=== PATIENT | female | born 2000 | race Caucasian/White ===

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

== ENCOUNTER 2019-04-28 12:27 | Emergency (ER) | payer OTHER ==
[2019-04-28 13:42] LABS: #Eosinphils 0.2 thou/uL (0.0-0.7); #Lymphocytes 1.7 thou/uL (1.20-3.40); #Monocytes 0.4 thou/uL (0.11-0.59); #Neutrophils 6.8 thou/uL (1.40-6.50); %Basophils 0.5 % (0.0-1.0); %Eosinophils 1.8 % (0.0-10.0); %Lymphocytes 18.5 % (28.0-48.0); %Monocytes 4.4 % (0.0-4.0); %Neutrophils 74.8 % (31.0-61.0); Hemoglobin 15.1 g/dL (12.0-16.0); Mean Corpuscular HGB CONC 33.1 g/dL (32.0-36.0); Mean Corpuscular Hemoglobin 28.4 pg (25.0-35.0); Mean Corpuscular Volume 85.9 fL (78.0-98.0); Mean Platelet Volume 9.1 fL (7.4-10.4); Platelet Count 266 thou/uL (130-400); RBC Distribution Width 12.5 % (11.5-14.5); White Blood Cell (WBC) Count 9.1 thou/uL (4.8-10.8)
[2019-04-28 14:00] LABS: Bilirubin Negative (Negative); Blood, Urine Negative (Negative); Glucose, Urine (Dipstick) Negative (Negative); Leukocyte Moderate (Negative); Nitrite Negative (Negative); Protein, Urine (Dipstick) Negative (Neg-Trace); Urobilinogen 0.2 mg/dL (Less than 2)
[2019-04-28 14:01] LABS: Clarity Hazy (Clear)
[2019-04-28 14:03] LABS: Pregnancy Test - Urine (BHCG) Negative (Negative); Pregu Control Background? CLEAR/WHITE (CLR/WHITE); Pregu Control Bar Appear? YES (CONTROL BAR)
[2019-04-28 14:07] LABS: Bacteria/HPF None Seen HPF (None Seen); RBC/HPF 0-3 HPF (0-3)
[2019-04-28 14:08] LABS: Mucous/LPF 1+ LPF (<2+)
--- NOTE | 2019-04-28 14:53 | RAD ---
XR Hip Lt 2-3 View: 04/28/2019 2:26 PM CLINICAL INDICATION: Pain COMPARISON: None. FINDINGS: Fracture:No fracture. Arthropathy:None of significance. Incidental findings:None of significance. IMPRESSION: 1. No acute osseous abnormality.
[2019-04-28 15:17] LABS: ALT (SGPT) 28 U/L (8-55); AST (SGOT) 20 U/L (5-34); Albumin 4.2 g/dL (3.5-5.0); Alkaline Phosphatase 107 U/L (40-100); Anion Gap 12 mmol/L (10-20); BUN (Urea Nitrogen) 14 mg/dL (7.0-18.7); Bilirubin, Total 0.3 mg/dL (0.2-1.2); Calc. Creatinine Clearance 0 mL/min (70-130); Calcium 9.3 mg/dL (7.8-10.44); Carbon Dioxide 27 mmol/L (22-29); Chloride 106 mmol/L (98-107); Estimated GFR-MDRD Greater than 90; Globulin 2.9 g/dL (2.4-3.5); Glucose 99 mg/dL (70-105); Potassium 4.7 mmol/L (3.5-5.1); Protein, Total 7.1 g/dL (6.0-8.3); Sodium 140 mmol/L (136-145)
== END 2019-04-28 15:34 | disposition home or self-care (01) ==
LOC: ERS 12:27
DX: M25.552 Pain in left hip (principal); N39.0 Urinary tract infection, site not specified; F17.210 Nicotine dependence, cigarettes, uncomplicated; J45.909 Unspecified asthma, uncomplicated; I45.6 Pre-excitation syndrome
CPT/HCPCS: 36415; 80053; 81003; 81015; 81025; 85025

== ENCOUNTER 2020-07-24 21:15 | Emergency (ER) | payer OTHER ==
[2020-07-24] MEDS ORDERED: Acetaminophen 500 MG TAB ONE (21:37)
[2020-07-24 22:07] LABS: #Eosinphils 0.1 thou/uL (0.0-0.7); #Lymphocytes 1.4 thou/uL (1.20-3.40); #Monocytes 0.6 thou/uL (0.11-0.59); #Neutrophils 7.3 thou/uL (1.40-6.50); %Basophils 0.1 % (0.0-1.0); %Eosinophils 0.7 % (0.0-10.0); %Monocytes 6.7 % (0.0-10.0); %Neutrophils 77.5 % (42.0-75.0); Hemoglobin 13.3 g/dL (12.0-16.0); Mean Corpuscular HGB CONC 32.9 g/dL (32.0-36.0); Mean Corpuscular Hemoglobin 27.4 pg (27.0-31.0); Mean Corpuscular Volume 83.3 fL (78.0-98.0); Mean Platelet Volume 7.9 fL (7.4-10.4); Platelet Count 305 thou/uL (130-400); RBC Distribution Width 12.2 % (11.5-14.5); Red Blood Cell (RBC) Count 4.86 mill/uL (4.20-5.40); White Blood Cell (WBC) Count 9.5 thou/uL (4.8-10.8)
[2020-07-24 22:13] LABS: Bilirubin Negative (Negative); Blood, Urine Negative (Negative); Clarity Clear (Clear); Glucose, Urine (Dipstick) Normal (Negative); Ketone, Urine Negative (Negative); Leukocyte Negative Leu/uL (Negative); Nitrite Negative (Negative); Protein, Urine (Dipstick) Negative (Neg-Trace); Specific Gravity, Urine 1.019 (1.002-1.036); Urobilinogen Normal mg/dL (Less than 2); pH, Urine 5.5 (5.0-9.0)
[2020-07-24] MEDS ORDERED: Dexamethasone 10 MG/ML VIAL ONE (22:15)
[2020-07-24] MEDS ORDERED: Ondansetron ODT 4 MG TAB ONE (22:15)
[2020-07-24 22:17] LABS: Pregnancy Test - Urine (BHCG) Negative (Negative); Pregu Control Background? CLEAR/WHITE (CLR/WHITE); Pregu Control Bar Appear? YES (CONTROL BAR); Specific Gravity 1.019 (1.002-1.036)
[2020-07-24 22:27] LABS: ALT (SGPT) 28 U/L (8-55); AST (SGOT) 21 U/L (5-34); Albumin 4.1 g/dL (3.5-5.0); Alkaline Phosphatase 132 U/L (40-110); Anion Gap 12 mmol/L (10-20); BUN (Urea Nitrogen) 5 mg/dL (7.0-18.7); Bilirubin, Total 0.2 mg/dL (0.2-1.2); Calc. Creatinine Clearance 0 mL/min (70-130); Carbon Dioxide 26 mmol/L (22-29); Chloride 104 mmol/L (98-107); Globulin 3.8 g/dL (2.4-3.5); Glucose 92 mg/dL (70-105); Protein, Total 7.9 g/dL (6.0-8.3); Sodium 138 mmol/L (136-145)
[2020-07-24] MEDS ORDERED: Ketorolac Tromethamine 30 MG/ML VIAL ONE (22:27)
[2020-07-25 05:41] LABS: SARS-CoV-2 PCR by NAA Indeterminate (NotDetected)
== END 2020-07-24 23:43 | disposition home or self-care (01) ==
LOC: ERS 21:15
DX: B34.9 Viral infection, unspecified (principal); Z20.822 Contact with and (suspected) exposure to COVID-19; R00.0 Tachycardia, unspecified; F17.200 Nicotine dependence, unspecified, uncomplicated
CPT/HCPCS: 36415; 71045; 80053; 81003; 81025; 85025; 87635; 93005; J1100; J1885; Q0162; U0003; U0005

== ENCOUNTER 2020-07-29 07:20 | Inpatient (IN) | payer OTHER ==
[2020-07-29] MEDS ORDERED: Acetaminophen 500 MG TAB ONE (07:31)
[2020-07-29] MEDS ORDERED: Ketorolac Tromethamine 30 MG/ML VIAL ONE (08:09)
[2020-07-29 08:11] LABS: Hemoglobin 13.4 g/dL (12.0-16.0); Mean Corpuscular HGB CONC 33.4 g/dL (32.0-36.0); Mean Corpuscular Hemoglobin 27.9 pg (27.0-31.0); Mean Corpuscular Volume 83.4 fL (78.0-98.0); Mean Platelet Volume 8.1 fL (7.4-10.4); Platelet Count 303 thou/uL (130-400); RBC Distribution Width 12.2 % (11.5-14.5); Red Blood Cell (RBC) Count 4.82 mill/uL (4.20-5.40); White Blood Cell (WBC) Count 15.9 thou/uL (4.8-10.8)
[2020-07-29 08:15] LABS: PTT 37.9 sec (22.9-36.1); Prothrombin Time 13.6 sec (12.0-14.7)
[2020-07-29 08:22] LABS: ALT (SGPT) 21 U/L (8-55); AST (SGOT) 18 U/L (5-34); Albumin 3.9 g/dL (3.5-5.0); Alkaline Phosphatase 129 U/L (40-110); Anion Gap 14 mmol/L (10-20); BUN (Urea Nitrogen) 11 mg/dL (7.0-18.7); Bilirubin, Total 0.4 mg/dL (0.2-1.2); Calc. Creatinine Clearance 0 mL/min (70-130); Calcium 8.8 mg/dL (7.8-10.44); Carbon Dioxide 23 mmol/L (22-29); Chloride 101 mmol/L (98-107); Glucose 105 mg/dL (70-105); Potassium 4.2 mmol/L (3.5-5.1); Protein, Total 7.9 g/dL (6.0-8.3); Sodium 134 mmol/L (136-145)
[2020-07-29 08:39] LABS: Band 26 % (5-11); Lymphocytes 6 % (21-51); MDiff Complete? YES; Monocytes 3 % (0-10); Neutrophil 65 % (42-75); Platelet Morphology Comment Appears Adequate; RBC Morphology Normal
--- NOTE | 2020-07-29 08:52 | RAD ---
Portable frontal chest radiograph: 07/29/2020 COMPARISON: 07/24/2020 HISTORY: Fever with headache and vomiting FINDINGS: Lungs are clear. Heart and mediastinal contours appear within normal limits. IMPRESSION: No acute findings.
[2020-07-29 09:59] LABS: Bilirubin Negative (Negative); Blood, Urine Negative (Negative); Clarity Clear (Clear); Glucose, Urine (Dipstick) Normal (Negative); Ketone, Urine Negative (Negative); Leukocyte 500 Leu/uL (Negative); Nitrite Negative (Negative); Protein, Urine (Dipstick) 30 mg/dL (Neg-Trace); RBC/HPF 0-3 HPF (0-3); Specific Gravity, Urine 1.023 (1.002-1.036); Urobilinogen Normal mg/dL (Less than 2)
[2020-07-29 10:01] LABS: Bacteria/HPF 1+ HPF (None Seen)
[2020-07-29 10:02] LABS: SARS-CoV-2 NAA Rapid Test Not Detected (NotDetected)
[2020-07-29 10:03] LABS: Pregnancy Test - Urine (BHCG) Negative (Negative); Pregu Control Background? CLEAR/WHITE (CLR/WHITE); Pregu Control Bar Appear? YES (CONTROL BAR); Specific Gravity 1.023 (1.002-1.036)
[2020-07-29] MEDS ORDERED: cefTRIAXone\\ROCEPHIN 1 GM VIAL ONE (10:16)
[2020-07-29] MEDS ORDERED: Ondansetron PF 4 MG/2 ML Vial IVP PRN (10:30)
[2020-07-29] MEDS ORDERED: Ondansetron ODT 4 MG TAB SL PRN (10:30)
--- NOTE | 2020-07-29 12:02 | PDOC.HHP ---
Hospitalist HPI fever History of Present Illness: This is a 19 year old female with PMH migraines, asthma and WPW arrythmia presents to ED with chief complaint of fever. The patient states her symptoms started last Sunday when she had a fever of 101. She had some chills, back pain, and headache, and came to the ER. She had a negative COVID test and was prescribed some liquid steroids which resolved her symptoms and was discharged. Last night, her headaches , chills and flank pain reoccurred and she spiked a fever back up to 103.9, so she presented back to the ER. She states her flank pain was on the right side, sharp, 5/10 and described it as feeling like someone was squeezing her. The pain lasted approximately two minutes, then resolved on its own, then came back in an hour. She had no relief with pain medicines. She denied dysuria, frequency, or urgency. She also had intractable nausea and vomiting that was brown in color. There was no blood. She reported constipation , but no diarrhea. She also reports sore throat with swelling of her tonsils that started yesterday. She has runny nose, sore throat, and mildly productive cough of clear phlegm. She denies muscle aches. She had an intractable headache which has now resolved. She is sexually active with three partners and had gonorrhea infection in the past. She reports using protection. Last LMP was June 29. She denies sick contacts. ED Course: ED Course: When patient came to the ER, she had temp of 101.3, heart rate 135, RR 22, BP 116/68. WBC was 15.9, sodium 134, ALP 129. UA showed 11-20 WBC, urine leukocyte esterase 500. COVID negative and influenza negative. CXR was normal. She was given ceftriaxone, 1L fluid, 30 of ketorolaac, and 1 gram tylenol. Allergies/Adverse Reactions: Allergy/AdvReac Type Severity Reaction Status Date / Time No Known Allergies Allergy Unverified 07/29/20 12:57 Past History: PMHx: * Migraines, diagnosed at 13, had CTs done but not seeing a specialist now * Asthma - very mild * [id number] Arrhythmia PSHx: * Appendectomy at age 12 FHx: Patient does not know her biological father. States she has DM, Thyroid, Cardiovascular (Aortic aneurysm, Brain aneurysm in MGM), and Cancer on maternal side of family. She has no kids. 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 While she describes another activity she does with regard to her grandmother and involves a lot of driving almost like a second job, she reports no undue stress. Current smoker ( vapes) every day, alcohol q2 weeks, marijuana weekly Hospitalist HPI ROS Constitutional: reports: fever, chills, sweats, weakness, malaise Eyes: denies: pain, vision change, conjunctivae inflammation, eyelid inflammation, redness ENT: reports: nose discharge, nose congestion, throat pain, throat swelling (Ad enoids swollen and tender to palpation). denies: ear pain, ear discharge, nose pain, mouth pain, mouth swelling Respiratory: reports: cough, shortness of breath ("All the time" a couple days ago (not related to exertion) but not experiencing now.), pleuritic pain, sputum. denies: hemoptysis, SOB with excertion, wheezing Cardiovascular: reports: chest pain (Always has chest pain when sick due to WPW arrhythmia.), light headedness (dizziness while ambulating). denies: palpitations, orthopnea, paroxysmal noc. dyspnea (Although it wakes her), edema Gastrointestinal: reports: nausea, vomiting, abdominal pain (RLQ, RMQ tender to palpation no rebound or rovsings), constipation. denies: diarrhea, melena, hematochezia Genitourinary: denies: dysuria, incontinence, hematuria Musculoskeletal: reports: neck pain, back pain. denies: shoulder pain, arm pain, hand pain, leg pain, foot pain Skin: denies: rash, lesions, rosa, bruising Neurological: reports: weakness (Pt does not think weakness neurological in nature, but because she is sick). denies: numbness, incoordination, change in speech, confusion, seizures Hospitalist Exam General Appearance: NAD, awake alert. negative: ill appearing Eye: PERRL, anicteric sclera. negative: scleral icterus ENT: normocephalic atraumatic, no oropharyngeal lesions (Looked in mouth with l ight, no tongueblade), moist mucosa Neck: supple, symmetric, no JVD, no lymphadenopathy (adenoids tender to palpation), no carotid bruit Heart: RRR, no murmur, no gallops, no rubs, normal peripheral pulses (pedal & radial) Respiratory: CTAB, no wheezes, no rales, no ronchi Gastrointestinal: soft, non-distended, normal bowel sounds, no palpable masses (Maybe HSM? Was able to palpate liver and spleen below costal margin), no splenomegaly, no guarding, no rigidity Gastrointestinal - other findings: right CVA tenderness Extremities: no cyanosis, no edema Skin: normal turgor Neurological: cranial nerve grossly intact, no focal deficits Musculoskeletal: generalized weakness Psychiatric: normal affect, normal behavior, A&O x 3, oriented to person, oriented to place, oriented to time Hospitalist Results Result Diagrams: 07/29/20 07:46 07/29/20 07:46 Lab results: Laboratory Last Values WBC 15.9 thou/uL (4.8-10.8) H 07/29/20 07:46 RBC 4.82 mill/uL (4.20-5.40) 07/29/20 07:46 Hgb 13.4 g/dL (12.0-16.0) 07/29/20 07:46 Hct 40.2 % (36.0-47.0) 07/29/20 07:46 MCV 83.4 fL (78.0-98.0) 07/29/20 07:46 MCH 27.9 pg (27.0-31.0) 07/29/20 07:46 MCHC 33.4 g/dL (32.0-36.0) 07/29/20 07:46 RDW 12.2 % (11.5-14.5) 07/29/20 07:46 Plt Count 303 thou/uL (130-400) 07/29/20 07:46 MPV 8.1 fL (7.4-10.4) 07/29/20 07:46 Neutrophils % (Manual) 65 % (42-75) 07/29/20 07:46 Band Neuts % (Manual) 26 % (5-11) H 07/29/20 07:46 Lymphocytes % (Manual) 6 % (21-51) L 07/29/20 07:46 Monocytes % (Manual) 3 % (0-10) 07/29/20 07:46 Lymphocytes # Not Reportable 07/29/20 07:46 Plt Morphology Comment Appears Adequate 07/29/20 07:46 RBC Morph Comment Normal 07/29/20 07:46 PT 13.6 sec (12.0-14.7) 07/29/20 07:46 INR 1.0 07/29/20 07:46 APTT 37.9 sec (22.9-36.1) H 07/29/20 07:46 Sodium 134 mmol/L (136-145) L 07/29/20 07:46 Potassium 4.2 mmol/L (3.5-5.1) 07/29/20 07:46 Chloride 101 mmol/L (98-107) 07/29/20 07:46 Carbon Dioxide 23 mmol/L (22-29) 07/29/20 07:46 Anion Gap 14 mmol/L (10-20) 07/29/20 07:46 BUN 11 mg/dL (7.0-18.7) 07/29/20 07:46 Creatinine 0.89 mg/dL (0.6-1.1) 07/29/20 07:46 Estimated GFR (MDRD) 80 07/29/20 07:46 Glucose 105 mg/dL (70-105) 07/29/20 07:46 Lactic Acid 0.9 mmol/L (0.5-2.2) 07/29/20 07:58 Calcium 8.8 mg/dL (7.8-10.44) 07/29/20 07:46 Total Bilirubin 0.4 mg/dL (0.2-1.2) 07/29/20 07:46 AST 18 U/L (5-34) 07/29/20 07:46 ALT 21 U/L (8-55) 07/29/20 07:46 Alkaline Phosphatase 129 U/L (40-110) H 07/29/20 07:46 Serum Total Protein 7.9 g/dL (6.0-8.3) 07/29/20 07:46 Albumin 3.9 g/dL (3.5-5.0) 07/29/20 07:46 Globulin 4.0 g/dL (2.4-3.5) H 07/29/20 07:46 Albumin/Globulin Ratio 1.0 g/dL (1.2-2.2) L 07/29/20 07:46 Urine Color Yellow (Yellow) 02/04/21 08:57 Urine Clarity Clear (Clear) 07/29/20 08:57 Urine pH 8.0 (5.0-9.0) 07/29/20 08:57 Ur Specific [place] 1.023 (1.002-1.036) 07/29/20 08:57 Ur Specific [place] 1.023 (1.002-1.036) 07/29/20 08:57 Urine Protein 30 mg/dL (Neg-Trace) A 07/29/20 08:57 Urine Glucose (UA) Normal mg/dL (Negative) 07/29/20 08:57 Urine Ketones Negative mg/dL (Negative) 07/29/20 08:57 Urine Blood Negative (Negative) 07/29/20 08:57 Urine Nitrite Negative (Negative) 07/29/20 08:57 Urine Bilirubin Negative (Negative) 07/29/20 08:57 Urine Urobilinogen Normal mg/dL (Less than 2) 07/29/20 08:57 Ur Leukocyte Esterase 500 [place]/uL (Negative) A 07/29/20 08:57 Urine RBC 0-3 HPF (0-3) 07/29/20 08:57 Urine WBC 11-20 HPF (0-3) A 07/29/20 08:57 Ur Squamous Epith Cells 11-20 HPF (0-3) A 07/29/20 08:57 Urine Bacteria 1+ HPF (None Seen) A 07/29/20 08:57 Urine Test Negative (Negative) 07/29/20 08:57 Influenza A RNA INAAT Not Detected (NotDetected) 07/29/20 09:11 Influenza B RNA INAAT Not Detected (NotDetected) 07/29/20 09:11 SARS-CoV-2 Rap RNA(RT-PCR) Not Detected (NotDetected) 07/29/20 09:11 Hospitalist H&P A/P Plan: This is a 19 year old female who presented to the ER with fever, tachycardia, ad mitted for pyelonephritis Sepsis secondary to pyelonephritis - had fever, tachycardia, positive UA and CVA tenderness. F/u blood culture, urine culture - will continue ceftriaxone - toradol prn for pain, tramadol prn for pain - will check HIV test, chlamydia/gonorrhea, hepatitis B given multiple sexual partners Hyponatremia - sodium 129, will start IV fluids Tory Hernandez -stable, will monitor Headaches - resolved Dispo: likely can d/c tomorrow
[2020-07-29] MEDS ORDERED: cefTRIAXone\\ROCEPHIN 1 GM in Sodium Chloride 0.9% 100 ML IVPB SCH (13:00)
[2020-07-29 13:15] VITALS: BMI 39.9
[2020-07-29] MEDS ORDERED: Morphine 2 MG/ML VIAL SLOW IVP PRN (14:55)
[2020-07-29] MEDS: Acetaminophen 325 MG TAB PO PRN ×2 (15:06→21:01)
[2020-07-29 17:54] LABS: HBSAB Concentration Less than 8.00 mIU/mL; HBSAg Index 0.27 S/CO (0-0.99); Hep B Surf AB Non-Reactive (NonReactive); Hep B Surf Ag Non-Reactive S/CO (NonReactive)
[2020-07-29] MEDS: Ketorolac Tromethamine 30 MG/ML VIAL IVP PRN (17:58)
[2020-07-29 18:23] LABS: HIV (1/2) Antibody/Antigen Non-Reactive (NonReactive); HIV 1/2 INDEX 0.12 S/CO (<1.00)
[2020-07-30] MEDS: Ketorolac Tromethamine 30 MG/ML VIAL IVP PRN (00:13)
[2020-07-30] MEDS: Acetaminophen 325 MG TAB PO PRN ×5 (01:01→23:18)
[2020-07-30 08:47] LABS: Hemoglobin 12.4 g/dL (12.0-16.0); Mean Corpuscular HGB CONC 33.7 g/dL (32.0-36.0); Mean Corpuscular Hemoglobin 28.1 pg (27.0-31.0); Mean Corpuscular Volume 83.5 fL (78.0-98.0); Platelet Count 268 thou/uL (130-400); RBC Distribution Width 12.2 % (11.5-14.5); Red Blood Cell (RBC) Count 4.42 mill/uL (4.20-5.40); White Blood Cell (WBC) Count 19.1 thou/uL (4.8-10.8)
--- NOTE | 2020-07-30 09:22 | PDOC.HOSPP ---
- Subjective Encounter Date: 07/30/20 Encounter Time: 09:20 Subjective: The patient has spiked fevers all day yesterday and she reports persistent chills. She still has abdominal pain on the right side, it improves some with the pain killers. She had no vomiting SHe denies diarrhea. Her throat is still sore and she has having odynophagia - Objective Vital Signs & Weight: Vital Signs (12 hours) Temp Pulse Resp BP Pulse Ox 07/30/20 06:43 102.5 F H 102 H 16 109/59 L 96 07/30/20 05:51 100.7 F H 07/30/20 05:49 100.7 F H 07/30/20 05:10 100.8 F H 07/30/20 03:56 98.5 F 85 16 110/59 L 97 07/30/20 02:00 99.9 F H 07/30/20 01:00 102.0 F H 07/30/20 00:10 103.0 F H 07/29/20 23:31 100.8 F H 107 H 16 118/56 L 96 07/29/20 23:25 100.8 F H 07/29/20 21:47 100.4 F H Weight Weight 218 lb I&O: 07/29/20 07/30/20 07/31/20 06:59 06:59 06:59 Intake Total 650 371 Balance 650 371 Result Diagrams: 07/30/20 08:19 07/29/20 07:46 Hospitalist ROS - Review of Systems Constitutional: denies: fever, chills - Medication Medications: Active Medications Generic Name Dose Route Start Last Admin Trade Name Joshq PRN Reason Stop Dose Admin Acetaminophen 650 mg 07/29/20 10:30 07/30/20 05:49 Acetaminophen 325 Mg Tab PO 650 mg Q4H PRN Administration Headache/Fever or Pain Ketorolac Tromethamine 15 mg 07/29/20 14:54 07/30/20 00:13 Ketorolac Tromethamine 30 Mg/Ml Vial IVP 08/03/20 14:55 15 mg Q6H PRN Administration Pain Morphine Sulfate 2 mg 07/29/20 14:55 07/29/20 15:09 Morphine 2 Mg/Ml Vial SLOW IVP 2 mg Q4H PRN Administration Severe Pain (7-10) Hospitalist Exam Vitals: Vital Signs (12 hours) Temp Pulse Resp BP Pulse Ox 07/30/20 06:43 102.5 F H 102 H 16 109/59 L 96 07/30/20 05:51 100.7 F H 07/30/20 05:49 100.7 F H 07/30/20 05:10 100.8 F H 07/30/20 03:56 98.5 F 85 16 110/59 L 97 07/30/20 02:00 99.9 F H 07/30/20 01:00 102.0 F H 07/30/20 00:10 103.0 F H 07/29/20 23:31 100.8 F H 107 H 16 118/56 L 96 07/29/20 23:25 100.8 F H 07/29/20 21:47 100.4 F H Weight Weight 218 lb General Appearance: NAD, awake alert Eye: PERRL, anicteric sclera ENT: normocephalic atraumatic, no oropharyngeal lesions Neck: no JVD Heart: RRR, no murmur, no gallops, no rubs Respiratory: CTAB, no wheezes, no rales, no ronchi Gastrointestinal: soft, non-tender, non-distended, normal bowel sounds Gastrointestinal - other findings: right > left CVA tenderness Extremities: no cyanosis, no clubbing, no edema Skin: normal turgor, no lesions, no rashes Neurological: cranial nerve grossly intact, normal sensation to touch, no weakness Musculoskeletal: normal tone, normal strength, no muscle wasting Psychiatric: normal affect, normal behavior, A&O x 3 Hosp A/P - Plan This is a 19 year old female who presented to the ER with fever, tachycardia, admitted for pyelonephritis Sepsis secondary to pyelonephritis - still febrile on ceftriaxone and WBC has increased to 19. Will switch to IV zosyn pending culture results . F/u urine and blood cultures - consider CT abdomen if persistent fevers in 24 hours - continue prn pain meds. - patient has 3 sexual partners. HIV and hep B test were negative. Chlamydia/gonorrhea are pending. Will add RPR well for screening Hyponatremia -sodium improved to 134. Elevated ALP - ALP 129, trending down. Will repeat CMP today Tory Parkinsons White -stable, will monitor Headaches - resolved
[2020-07-30] MEDS ORDERED: cefTRIAXone\\ROCEPHIN 1 GM in Sodium Chloride 0.9% 100 ML IVPB SCH (10:00)
[2020-07-30] MEDS: Piperacillin/Tazobactam 3.375 GM in Sodium Chloride 0.9% 100 ML IVPB SCH ×3 (10:05→21:50)
[2020-07-30 10:06] LABS: Syphilis Antibody Nonreactive (Nonreactive); Syphilis Antibody Index 0.13 S/CO (<1.00 Non-Reactive)
[2020-07-30] MEDS: traMADol HCl 50 MG TAB PO PRN ×2 (10:13→19:46)
[2020-07-30] MEDS ORDERED: Ondansetron PF 4 MG/2 ML Vial IVP PRN (10:19)
[2020-07-30] MEDS: Sodium Chloride 0.9% 1,000 ML IV SCH ×2 (11:41→21:49)
[2020-07-31] MEDS: traMADol HCl 50 MG TAB PO PRN (03:54)
[2020-07-31] MEDS: Piperacillin/Tazobactam 3.375 GM in Sodium Chloride 0.9% 100 ML IVPB SCH ×4 (03:55→22:15)
[2020-07-31 05:14] LABS: Hemoglobin 10.8 g/dL (12.0-16.0); Mean Corpuscular HGB CONC 32.6 g/dL (32.0-36.0); Mean Platelet Volume 8.3 fL (7.4-10.4); Platelet Count 258 thou/uL (130-400); RBC Distribution Width 12.2 % (11.5-14.5); Red Blood Cell (RBC) Count 3.99 mill/uL (4.20-5.40); White Blood Cell (WBC) Count 12.2 thou/uL (4.8-10.8)
[2020-07-31 05:37] LABS: ALT (SGPT) 17 U/L (8-55); AST (SGOT) 17 U/L (5-34); Alkaline Phosphatase 93 U/L (40-110); Anion Gap 13 mmol/L (10-20); BUN (Urea Nitrogen) 6 mg/dL (7.0-18.7); Bilirubin, Total 0.3 mg/dL (0.2-1.2); Calc. Creatinine Clearance 190 mL/min (70-130); Calcium 7.7 mg/dL (7.8-10.44); Carbon Dioxide 21 mmol/L (22-29); Chloride 106 mmol/L (98-107); Globulin 3.2 g/dL (2.4-3.5); Glucose 88 mg/dL (70-105); Potassium 3.8 mmol/L (3.5-5.1); Protein, Total 6.2 g/dL (6.0-8.3); Sodium 136 mmol/L (136-145)
[2020-07-31] MEDS ORDERED: Cepastat Lozenges 1 LOZ PO PRN (05:59)
[2020-07-31] MEDS: Sodium Chloride 0.9% 1,000 ML IV SCH ×2 (09:32→22:15)
[2020-07-31] MEDS ORDERED: Dexamethasone 4 mg/ml Vial SLOW IVP SCH (13:00)
--- NOTE | 2020-07-31 13:31 | PDOC.HOSPP ---
- Subjective Encounter Date: 07/31/20 Encounter Time: 11:20 Subjective: Patient seen this morning and test results are discussed. She feels that her tonsils are more swollen than yesterday - will start her on a empiric Decadron and request the ENT consult. Unasyn antibiotic would be appropriate but she is covered with the Zosyn for pyelonephritis we will continue the same. Exam showed swollen tonsils but no exudate appreciated. - Objective Vital Signs & Weight: Vital Signs (12 hours) Temp Pulse Resp BP Pulse Ox 07/31/20 11:21 100.0 F H 07/31/20 07:37 100.7 F H 94 18 120/58 L 95 07/31/20 04:00 99.8 F H Weight Weight 218 lb I&O: 07/30/20 07/31/20 08/01/20 06:59 06:59 06:59 Intake Total 650 2746 1690 Balance 650 2746 1690 Result Diagrams: 07/31/20 04:31 07/31/20 04:31 Hospitalist ROS - Medication Medications: Active Medications Generic Name Dose Route Start Last Admin Trade Name Freq PRN Reason Stop Dose Admin Acetaminophen 650 mg 07/30/20 12:39 07/30/20 23:18 Acetaminophen 325 Mg Tab PO 650 mg Q4H PRN Administration Headache/Fever or Pain Piperacillin Sod/Tazobactam 100 mls @ 200 mls/hr 07/30/20 10:00 07/31/20 09:33 Sod 3.375 gm/ Sodium Chloride IVPB 100 mls 0400,1000,1600,2200 HANH Administration Sodium Chloride 1,000 mls @ 100 mls/hr 07/30/20 10:45 07/31/20 09:32 Normal Saline 0.9% IV 1,000 mls .Q10H HANH Administration Ketorolac Tromethamine 15 mg 07/29/20 14:54 07/30/20 00:13 Ketorolac Tromethamine 30 Mg/Ml Vial IVP 08/03/20 14:55 15 mg Q6H PRN Administration Pain Morphine Sulfate 2 mg 07/29/20 14:55 07/29/20 15:09 Morphine 2 Mg/Ml Vial SLOW IVP 2 mg Q4H PRN Administration Severe Pain (7-10) Ondansetron HCl 4 mg 07/30/20 10:19 07/30/20 11:13 Ondansetron Pf 4 Mg/2 Ml Vial IVP 4 mg Q6H PRN Administration Nausea/Vomiting Sodium Chloride 10 ml 07/30/20 21:00 07/31/20 09:33 Flush - Normal Saline 10 Ml Syringe IVF 10 ml Q12HR HANH Administration Throat Lozenges 1 daija 07/31/20 05:59 07/31/20 06:27 Cepastat Lozenges 1 Daija PO 1 daija Q1H PRN Administration Cough Tramadol HCl 50 mg 07/29/20 14:55 07/31/20 03:54 Tramadol Hcl 50 Mg Tab PO 50 mg Q4H PRN Administration Severe Pain (7-10) Hospitalist Exam Vitals: Vital Signs (12 hours) Temp Pulse Resp BP Pulse Ox 07/31/20 11:21 100.0 F H 07/31/20 07:37 100.7 F H 94 18 120/58 L 95 07/31/20 04:00 99.8 F H Weight Weight 218 lb General Appearance: NAD, awake alert Eye: PERRL ENT: normocephalic atraumatic ENT - other findings: Bilateral tonsils more swollen and erythematic but no exudate Neck: supple Heart: RRR Respiratory: CTAB, normal chest expansion Gastrointestinal: soft, normal bowel sounds Neurological: cranial nerve grossly intact, no focal deficits Psychiatric: A&O x 3 Hosp A/P - Plan 19 year old female who presented to the ER with fever, tachycardia, admitted for pyelonephritis Sepsis secondary to pyelonephritis - still febrile on ceftriaxone and WBC has increased to 19. Will switch to IV zosyn pending culture results . F/u urine and blood cultures - consider CT abdomen if persistent fevers in 24 hours - continue prn pain meds. - patient has 3 sexual partners. HIV and hep B test were negative. Chlamydia/gonorrhea are pending. Will add RPR well for screening Hyponatremia -sodium improved to 134. Elevated ALP - ALP 129, trending down. Will repeat CMP today Tory Ann White -stable, will monitor Headaches - resolved 6th Swollen tonsils rapid strep -HIV hepatitis series negative -will start her on a empiric Decadron and request the ENT consult. -Unasyn antibiotic would be appropriate but she is covered with the Zosyn for pyelonephritis we will continue the same. urine deonna - mixed fletcher
[2020-07-31] MEDS ORDERED: Chloraseptic Spray 180 ml Bottle PO PRN (14:05)
[2020-07-31] MEDS: Acetaminophen 325 MG TAB PO PRN (17:44)
[2020-07-31] MEDS: Dexamethasone 4 mg/ml Vial SLOW IVP SCH (20:06)
[2020-07-31 22:28] VITALS: TEMP 97.5
[2020-08-01] MEDS: Piperacillin/Tazobactam 3.375 GM in Sodium Chloride 0.9% 100 ML IVPB SCH ×2 (04:00→10:03)
[2020-08-01 07:45] VITALS: BP 127/74
[2020-08-01] MEDS: Dexamethasone 4 mg/ml Vial SLOW IVP SCH (10:04)
[2020-08-01 13:09] LABS: MONO NEGATIVE CONTROL ZONE White (Negative) (White); MONO POSITIVE CONTROL Pink Line (Positive) (PINK/RED); Mononucleosis NEGATIVE (NEGATIVE)
[2020-08-01] MEDS: Sodium Chloride 0.9% 1,000 ML IV SCH (13:24)
--- NOTE | 2020-08-01 13:39 | PDOC.DS.DS ---
Provider Date of Admission: 07/30/20 09:18 Admitting Provider: Mackenzie Saucedo MD Course Hospital Course: 19 year old female who presented to the ER with fever, tachycardia, admitted for pyelonephritis Sepsis secondary to pyelonephritis - still febrile on ceftriaxone and WBC has increased to 19. Will switch to IV zosyn pending culture results . F/u urine and blood cultures -She is clinically improved. And no flank pain. Urine culture grew strep ac halasia less than 10,000 colonies as well as normal urogenital fletcher. Hyponatremia -sodium improved to 134. Tory Parkinsons White -stable Swollen tonsils/tonsilitis rapid strep negative -HIV hepatitis series negative -Clinically much better with the short course of steroid. Patient is discharged with Augmentin and short course of prednisone to address pyelonephritis as well as tonsillitis. Discharge time over 30 minutes. Lab Results: 07/31/20 04:31 07/31/20 04:31 Abnormal Lab Results - Last 48 hrs 07/31/20 04:31: Carbon Dioxide 21 L, BUN 6 L, Calcium 7.7 L, Albumin 3.0 L, Albumin/Globulin Ratio 0.9 L 07/31/20 04:31: WBC 12.2 H, RBC 3.99 L, Hgb 10.8 L, Hct 33.1 L Microbiology - Entire Visit 07/29/20 08:57 Urine voided Urine Culture - Final Streptococcus agalactiae Gp. B 07/30/20 10:41 Throat Group A Streptococcus Culture - Final 07/30/20 10:18 Nasal swab Nose/Throat Culture - Preliminary 07/31/20 14:55 Throat Group A Streptococcus Screen ([facility]) - Final 07/29/20 08:07 Venous blood - Left Hand Blood Culture - Preliminary NO GROWTH AT 48 HOURS 07/29/20 07:58 Venous blood - Right Arm Blood Culture - Preliminary NO GROWTH AT 48 HOURS 07/30/20 10:18 Throat Group A Streptococcus Screen ([facility]) - Final Vitals: Vital Signs (12 hours) Temp Pulse Resp BP Pulse Ox 08/01/20 07:44 97.5 F L 85 18 127/74 97 Weight Weight 218 lb Physical Exam: The patient was seen and examined on the day of discharge. Her tonsils looks much better no erythema or swollen. She is able to swallow without much difficulty. The steroid helped tremendously. She is quite anxious to go home today. Plan Prescriptions: Amoxicillin/Potassium Clav [Augmentin 875-125 Tablet] 1 each PO BID 7 Days #14 tablet predniSONE [Prednisone] 20 mg PO DAILY 5 Days #5 tablet Home Medications: Medication Instructions Recorded Confirmed Type Amoxicillin/Potassium Clav 1 each PO BID 7 Days #14 tablet 08/01/20 Rx [Augmentin 875-125 Tablet] predniSONE [Prednisone] 20 mg PO DAILY 5 Days #5 tablet 08/01/20 Rx Allergies: No Known Allergies Allergy (Unverified 07/29/20 12:57) Activity:: Activity as Tolerated Nourishment:: Regular Diet Disposition: HOME Quality CORE MEASURES:: N/A
--- NOTE | 2020-08-01 14:18 | CON ---
DATE OF CONSULTATION: 08/01/2020 CONSULTING PHYSICIAN: Dr. Saucedo. REASON FOR CONSULTATION: Tonsillar hypertrophy, sore throat. HISTORY OF PRESENT ILLNESS: Ms. Sawyer is a 19-year-old female, who has had a 3-week history of persistent sore throat and tonsil enlargement that is being getting progressively worse. About a week ago, she was treated with a round of steroids and had improvement in symptoms, but within a day or two of doing that, symptoms returned and has continued to worsen. She was evaluated in the hospital on and was thought to have a pyelonephritis due to flank pain and dysuria. She was admitted to the hospital on and continued to have throat problems and difficulty swallowing as well as fever and enlarged tonsils. No significant prior history of tonsil problems other than some as a child, is not having any difficulty breathing, was given a dose of Decadron yesterday and has noticed significant improvement in her throat and is now able to eat and drink again. She is having much less pain in the throat and fever has responded. Initial strep cultures have been negative and negative for all respiratory viruses and COVID. On testing, had a CBC which showed a definite left shift with predominant neutrophils and bands and very little lymphocytes. Has not had any previous history of mono. Please see her admission H and P for further details for past medical history and review of systems. PHYSICAL EXAMINATION: GENERAL: Well-developed, well-nourished white female, in no acute distress. HEENT: Head is normocephalic, atraumatic. Eyes; pupils are equal, round, reactive to light. Extraocular movements are intact. Ears; tympanic membranes are intact, mobile, clear. Nose shows normal mucosa. No drainage noted. Oral cavity, oropharynx shows 3+ tonsils which are cryptic. There is no exudate or erythema noted. No evidence of peritonsillar abscess. No trismus. Palate and tongue mobility are normal. NECK: Shows some tenderness in her jugulodigastric node, particularly on the right side. No other significant enlargements or masses were noted. Thyroid palpably normal. LUNGS: Clear to auscultation. HEART: Rate and rhythm regular without murmur or gallop. IMPRESSION: Pharyngitis with tonsillar hypertrophy, has responded to the steroids. Cultures have all been negative. White blood count shows more of a bacterial infection. No other significant findings. Blood cultures have been negative. RECOMMENDATIONS: I would recommend going ahead and checking a Monospot to see if this was mono causing the problems. The history is not 100% compatible, but nothing else does seem to fit with her symptoms. Recommend giving her prednisone 50 mg p.o. for 7 days at home and continue on the Augmentin for now as a p.o. for home unless something else needs to be treated. Do not see any evidence of any problems without any prior history. No further intervention is necessary unless she does not respond. Job ID: [id number]
[2020-08-01 15:55] LABS: Chlam.trachomatis by PCR,Urine Not Detected (NotDetected)
--- NOTE | 2020-08-04 08:06 | PQF ---
CLINICAL DOCUMENTATION CLARIFICATION FORM: Dear : Nick Noble Date / Time: 08/04/20 08:05 Please exercise your independent, professional judgment in responding to the clarification form. Clinical indicators are provided on the bottom of this form for your review Please check appropriate box(s): [ ] Septic Shock [ ] Shock Unspecified [x ] Other diagnosis, please specify _sepsis secondary to pyelonephritis [ ] Unable to determine In addition, please specify: Present on Admission (POA): [ ] Yes [ ] No [ ] Unable to determine Physician Signature: Date/Time: For continuity of documentation, please document condition throughout progress notes and discharge summary. Thank You. To be completed by CDI/Coding staff for physician review: Present Clinical Indicators - Signs / Symptoms / Labs Results and Location in Medical Record [x] presented wih fever tachycardia DS 08/01 [x] Vrqi=727.6 Ipwrq=451 Respi=18 VS 07/29 [x] BP: 07/2981=189/56 07/3084=240/59 0212=967/58,117/57 VS 07/29 [x] WBC: 07/29=15.9 07/30=19.1 07/31=12.2 Laboratory 07/29 [x] Lactic: 07/29=0.9 Laboratory 07/29 Present Risk Factors Results and Location in Medical Record [x] Sepsis DS 08/01 [x] Pyelonephritis DS 08/01 [x] Tory Parkinons White DS 08/01 Present Treatments Results and Location in Medical Record [x] Rocephin 1gm IV AUG 24 [x] Zosyn 3.375mg IV AUG 24 [x] IVF AUG 24 CDS/[employer] Supervisor Signature: Kale Duke Phone #: [phone] Date/Time: 08/04/20 This is a permanent part of the Medical Record [facility]
== END 2020-08-01 15:00 | disposition home or self-care (01) | DRG 872 ==
LOC: ERS 07:20 → ERHOLD 11:12 → ONC 12:31 → OBSVTOIN 07-30 09:18
PROVIDERS: ADMIT Internal Medicine; ATTEND Internal Medicine
DX: A41.9 Sepsis, unspecified organism (principal); N12 Tubulo-interstitial nephritis, not specified as acute or chronic; E87.1 Hypo-osmolality and hyponatremia; Z20.822 Contact with and (suspected) exposure to COVID-19; G43.909 Migraine, unspecified, not intractable, without status migrainosus; J45.909 Unspecified asthma, uncomplicated; I45.6 Pre-excitation syndrome; F17.200 Nicotine dependence, unspecified, uncomplicated; J03.90 Acute tonsillitis, unspecified; J02.9 Acute pharyngitis, unspecified; Z90.49 Acquired absence of other specified parts of digestive tract
CPT/HCPCS: 0240U; 36415; 71045; 80053; 81003; 81015; 81025; 83605; 85025; 85027; 85610; 85730; 86308; 86706; 86707; 86780; 87040; 87070; 87077; 87081; 87086; 87340; 87389; 87430; 87491; 87591; 94760; 96365; 96375; 96376; G0378; J0696; J1100; J1642; J1885; J2270; J2405; J2543; J3490